=== PATIENT | female | born 1945 | race Hispanic/Latino ===

== ENCOUNTER → 2022-06-05 | Outpatient (CLI) | payer MEDICARE | END | disposition home or self-care (01) | LOC: RAH 14:45 | PROVIDERS: ATTEND Family Medicine | DX: M54.2 Cervicalgia (principal) | CPT/HCPCS: 76536 ==

== ENCOUNTER → 2024-12-22 | Outpatient (CLI) | payer MEDICARE ==
--- NOTE | 2024-12-22 11:57 | HMCIMG ---
MR BRAIN WO CON REASON: DIZZINESS GIDDINESS TECHNIQUE: Routine cerebral imaging protocol was performed. Exam was performed without IV contrast. STUDIES FOR COMPARISON: None. FINDINGS: There are normal-appearing ventricles and sulci. There are isolated focal areas of increased signal intensity within the deep central white matter consistent with small vessel disease. These findings are mild in degree. There are no focal mass lesions. There are no abnormal fluid collections. There is no evidence of intracranial hemorrhage. Diffusion-weighted images are negative for acute ischemic event. Posterior fossa and brainstem structures appear normal as well. Calvarium appears unremarkable. Extracranial soft tissues appear normal as well. IMPRESSION: 1. Periventricular white matter changes of small vessel disease, mild in degree. 2. Otherwise unremarkable exam, no evidence of acute ischemic change.
== END | disposition home or self-care (01) ==
LOC: RAH 10:51
PROVIDERS: ATTEND Family Medicine
DX: G93.89 Other specified disorders of brain (principal); R42 Dizziness and giddiness
CPT/HCPCS: 70551